=== PATIENT | female | born 1980 | race Caucasian/White ===

== ENCOUNTER 2018-02-28 08:04 | Emergency (ER) | payer OTHER ==
[~2018-02-28] VITALS: Ht 177.8 cm; Wt 66.7 kg
[2018-02-28] MEDS ORDERED: FOLIC ACID0.4 MG (08:21)
[2018-02-28] MEDS ORDERED: SULFASALAZINE500 MG (08:22)
== END 2018-02-28 11:59 | disposition home or self-care (01) ==
LOC: ER 08:04
DX: N39.0 Urinary tract infection, site not specified (principal); R51 Headache